=== PATIENT | female | born 1980 | race Caucasian/White ===

== ENCOUNTER → 2020-09-06 | Outpatient (CLI) | payer OTHER ==
--- NOTE | 2020-09-13 11:40 | SLE ---
[facility] [place] [address] [place] [address] POLYSOMNOGRAPHY STUDY Name: MELISSA GARCIA Room #: [facility]#: [id number] Admission: 09/06/20 Attend Phys: Brett Shipley MD Discharge: Date of : 78 Report #: [id number] THIS REPORT FOR: cc: Terri Mckeon MD, Genelle J. MD Khan, Aman U. MD ~ DOC #: [id number] cc: MD Brett Rubi MD DATE OF SERVICE: 09/06/2020 SLEEP STUDY REFERRING PHYSICIAN: Dr. Massimo Tate. The patient is 40 years old who weighs 330 pounds with a BMI of 56.6. The patient's [place] score was 6. The patient underwent diagnostic sleep study performed at [facility]. During the night study, the patient spent 435 minutes in bed and slept for 388 minutes with a sleep efficiency of 89%. Sleep latency was 4.2 minutes with absent REM sleep. Sleep architecture showed normal stage I sleep, increased N2 sleep, normal N3 sleep, and absent REM sleep. During the night study, the patient had no apneas. The patient had 2 hypopneas. The patient's AHI for the entire night was 0.3 per hour. No REM sleep was observed. Supine AHI was 0 per hour. EKG monitoring revealed average heart rate of 79 beats per minute. No sustained arrhythmias observed. PLMs were seen at an index of 6 per hour and 1.7 per hour caused EEG arousals. Nocturnal oximetry study revealed an average oxygen saturation of 96% with a lowest of 92%. Due to low AHI, the patient did not meet the split night criteria for CPAP initiation. IMPRESSION: 1. No clinically significant sleep disorder breathing. The patient's AHI for the entire night was 0.3 per hour. 2. No clinically significant nocturnal hypoxia. 3. No clinically significant periodic limb movements. [facility] [address] [place] [address] POLYSOMNOGRAPHY STUDY Name: MELISSA GARCIA Room #: [facility]#: [id number] Admission: 09/06/20 Attend Phys: Brett Shipley MD Discharge: Date of : 78 Report #: [id number] RECOMMENDATIONS: 1. The patient does not meet the criteria for CPAP initiation due to low AHI. 2. Weight loss to ideal body weight is recommended. 3. Avoid [employer] depressants. 4. Cautioned regarding driving when sleepy or sleep deprived. Brett Shipley MD AUK/I <ELECTRONICALLY SIGNED> By: Brett Shipley MD 09/13/20 [id number] Brett Shipley MD /nt
== END ==
LOC: SLEEPLAB 08:32
PROVIDERS: ATTEND Internal Medicine Critical Care Medicine
DX: G47.33 Obstructive sleep apnea (adult) (pediatric) (principal); Z88.5 Allergy status to narcotic agent; Z88.8 Allergy status to other drugs, medicaments and biological substances; Z68.43 Body mass index [BMI] 50.0-59.9, adult

== ENCOUNTER → 2020-09-08 | Outpatient (CLI) | payer OTHER | LOC: SJCVCIMAG 08:58 | PROVIDERS: ATTEND Internal Medicine | DX: I08.1 Rheumatic disorders of both mitral and tricuspid valves (principal); I49.9 Cardiac arrhythmia, unspecified; R55 Syncope and collapse ==